=== PATIENT | female | born 1970 | race African-American/Black ===

== ENCOUNTER 2021-09-02 11:46 | Emergency (ER) | payer BC ==
[~2021-09-02] VITALS: Ht 167.6 cm; Wt 139.7 kg
== END 2021-09-02 13:04 | disposition home or self-care (01) ==
LOC: ER 12:04
DX: H61.21 Impacted cerumen, right ear (principal); I11.0 Hypertensive heart disease with heart failure; I50.9 Heart failure, unspecified; Z20.822 Contact with and (suspected) exposure to COVID-19
CPT/HCPCS: 99283

== ENCOUNTER 2022-01-05 22:08 | Emergency (ER) | payer BC ==
[~2022-01-05] VITALS: Ht 167.6 cm; Wt 139.7 kg
[2022-01-05] MEDS ORDERED: ONDANSETRON HCL INJ 2MG/ML 2ML 2 MG/ML VIAL IV STA (22:49)
[2022-01-05] MEDS ORDERED: SODIUM CHLORIDE 0.9% 1000ML 1,000 ML IV STA (22:49)
[2022-01-05] MEDS ORDERED: HYDRALAZINE HCL 20 MG/ML VIAL IV STA (22:59)
[2022-01-05 23:02] LABS: BASOPHILS # (AUTO) 0.1 (0.0-0.1); BASOPHILS % 0.9 % (0.0-1.0); EOSINOPHILS # (AUTO) 0.2 (0.0-0.4); EOSINOPHILS % 1.6 % (0.0-6.0); HEMATOCRIT 35.1 % (34.2-44.1); HEMOGLOBIN 11.7 g/dL (12.0-16.0); LYMPHOCYTES % 21.6 % (18.0-39.1); MEAN CORPUSCULAR HEMOGLOBIN 24.4 pg (28-32); MEAN CORPUSCULAR HGB CONC 33.3 g/dL (31-35); MEAN CORPUSCULAR VOLUME 73.3 fL (81-99); MONOCYTES # (AUTO) 0.6 (0.2-0.8); MONOCYTES % 6.5 % (4.4-11.3); NEUTROPHILS # (AUTO) 6.3 (2.1-6.9); PLATELET COUNT 277 x10e3/uL (140-360); RED BLOOD COUNT 4.79 x10e6/uL (3.6-5.1); RED CELL DISTRIBUTION WIDTH 16.6 % (11.7-14.4)
[2022-01-05] MEDS ORDERED: ONDANSETRON HCL INJ 2MG/ML 2ML 2 MG/ML VIAL ONE (23:04)
[2022-01-05 23:22] LABS: ALANINE AMINOTRANSFERASE 10 IU/L (0-55); ALBUMIN 3.4 g/dL (3.5-5.0); ALBUMIN/GLOBULIN RATIO 0.8 (0.8-2.0); ALKALINE PHOSPHATASE 49 IU/L (40-150); ANION GAP 13.4 mmol/L (8-16); BLOOD UREA NITROGEN 13 mg/dL (7-26); BUN/CREATININE RATIO 13 (6-25); CALCIUM 8.3 mg/dL (8.4-10.2); CARBON DIOXIDE 28 mmol/L (22-29); CHLORIDE 102 mmol/L (98-107); CREATINE KINASE 248 IU/L (29-168); CREATININE, SERUM 0.98 mg/dL (0.57-1.11); EST GLOMERULAR FILTRATION RATE 73 ML/MIN (60-); GLUCOSE 108 mg/dL (74-118); POTASSIUM 3.4 mmol/L (3.5-5.1); SODIUM 140 mmol/L (136-145)
[2022-01-06] MEDS ORDERED: ONDANSETRON ODT4 MG PO (00:43)
[2022-01-06] MEDS ORDERED: IOPAMIDOL 370 MG/ML 100 ML INFUS..BTL INJ ONE (00:44)
[2022-01-06 01:33] VITALS: BP 184/120
== END 2022-01-06 01:00 | disposition home or self-care (01) ==
LOC: ER 22:41
DX: R11.2 Nausea with vomiting, unspecified (principal); I16.0 Hypertensive urgency; M79.652 Pain in left thigh; I10 Essential (primary) hypertension; I50.9 Heart failure, unspecified; Z86.711 Personal history of pulmonary embolism
CPT/HCPCS: 36415; 71045; 80053; 82550; 82553; 83690; 83880; 84484; 84702; 85025; 85379; 93005; 93971; 99284; J0360; J2405; J7030; Q9967

== ENCOUNTER 2022-04-15 13:12 | Emergency (ER) | payer BC ==
[~2022-04-15] VITALS: Ht 167.6 cm; Wt 139.7 kg
[~2022-04-15 13:12] MED LIST: ONDANSETRON ODT4 MG PO
[2022-04-15] MEDS ORDERED: MEDROL4 M2 PO (14:07)
[2022-04-15] MEDS ORDERED: ANAPROX DS550 MG PO (14:07)
== END 2022-04-15 14:59 | disposition home or self-care (01) ==
LOC: ER 13:19
DX: M79.631 Pain in right forearm (principal); M77.8 Other enthesopathies, not elsewhere classified; I10 Essential (primary) hypertension; I50.9 Heart failure, unspecified; Z86.718 Personal history of other venous thrombosis and embolism
CPT/HCPCS: 99282

== ENCOUNTER 2023-02-17 17:36 | Emergency (ER) | payer BC, OTHER ==
[~2023-02-17] VITALS: Ht 167.6 cm; Wt 138.8 kg
[~2023-02-17 17:36] MED LIST changes: +ANAPROX DS550 MG PO; +MEDROL4 M2 PO
[2023-02-17] MEDS ORDERED: IBUPROFEN 600 MG TAB ONE (18:16)
[2023-02-17] MEDS ORDERED: IBUPROFEN 600 MG TAB PO STA (18:18)
[2023-02-17] MEDS ORDERED: CEFDINIR300 MG PO (18:46)
[2023-02-17 18:57] VITALS: O2SAT 97
== END 2023-02-17 19:15 | disposition home or self-care (01) ==
LOC: FSED 17:42
DX: R50.9 Fever, unspecified (principal); J06.9 Acute upper respiratory infection, unspecified; I10 Essential (primary) hypertension; I50.9 Heart failure, unspecified; Z86.718 Personal history of other venous thrombosis and embolism
CPT/HCPCS: 83518; 87400; 99283

== ENCOUNTER 2023-10-02 10:31 | Emergency (ER) | payer BC, OTHER ==
[~2023-10-02] VITALS: Ht 167.6 cm; Wt 138.8 kg
[~2023-10-02 10:31] MED LIST changes: +CEFDINIR300 MG PO
[2023-10-02] MEDS ORDERED: BENZONATATE 100 MG CAP PO STA (10:38)
[2023-10-02] MEDS ORDERED: SODIUM CHLORIDE FLUSH 10 ML SYR IV PRN (10:45)
[2023-10-02 11:40] LABS: BASOPHILS # (AUTO) 0.1 (0.0-0.1); BASOPHILS % 1.1 % (0.0-1.0); EOSINOPHILS # (AUTO) 0.1 (0.0-0.4); EOSINOPHILS % 1.4 % (0.0-6.0); HEMATOCRIT 35.4 % (34.2-44.1); HEMOGLOBIN 11.4 g/dL (12.0-16.0); LYMPHOCYTES # (AUTO) 0.9 (1.0-3.2); LYMPHOCYTES % 12.8 % (18.0-39.1); MEAN CORPUSCULAR HEMOGLOBIN 23.8 pg (28-32); MEAN CORPUSCULAR HGB CONC 32.2 g/dL (31-35); MEAN CORPUSCULAR VOLUME 74.1 fL (81-99); MONOCYTES # (AUTO) 0.7 (0.2-0.8); MONOCYTES % 9.7 % (4.4-11.3); NEUTROPHILS # (AUTO) 5.4 (2.1-6.9); NEUTROPHILS % 74.6 % (38.7-80.0); PLATELET COUNT 287 x10e3/uL (140-360); RED BLOOD COUNT 4.78 x10e6/uL (3.6-5.1); WHITE BLOOD COUNT 7.18 x10e3/uL (4.8-10.8)
[2023-10-02 11:56] LABS: ALANINE AMINOTRANSFERASE 13 IU/L (0-55); ALBUMIN 3.5 g/dL (3.5-5.0); ALKALINE PHOSPHATASE 43 IU/L (40-150); ANION GAP 11.5 mmol/L (8-16); BILIRUBIN,TOTAL 0.4 mg/dL (0.2-1.2); BLOOD UREA NITROGEN 8 mg/dL (7-26); BUN/CREATININE RATIO 9 (6-25); CALCIUM 8.6 mg/dL (8.4-10.2); CARBON DIOXIDE 28 mmol/L (22-29); CHLORIDE 102 mmol/L (98-107); CREATININE, SERUM 0.91 mg/dL (0.57-1.11); EST GLOMERULAR FILTRATION RATE 76 ML/MIN (>=60); GLUCOSE 100 mg/dL (74-118); POTASSIUM 3.5 mmol/L (3.5-5.1); SODIUM 138 mmol/L (136-145); TOTAL PROTEIN 7.1 g/dL (6.5-8.1)
[2023-10-02 12:03] LABS: TROPONIN I < 0.001 ng/mL (0-0.300)
[2023-10-02] MEDS ORDERED: PAXLOVID 300-11 EAC1 PO (14:26)
[2023-10-02 15:09] VITALS: BP 166/109; PULSE 84; RESP 17; TEMP 98.9; O2SAT 99
== END 2023-10-02 15:11 | disposition home or self-care (01) ==
LOC: ER 10:43
DX: R06.00 Dyspnea, unspecified (principal); U07.1 COVID-19; I10 Essential (primary) hypertension; I50.9 Heart failure, unspecified; Z86.718 Personal history of other venous thrombosis and embolism
CPT/HCPCS: 36415; 71046; 80053; 83880; 84484; 85025; 87400; 93005; 94760; 99284; U0002